=== PATIENT | female | born 1935 | race Caucasian/White ===

== ENCOUNTER 2023-10-22 17:00 | Emergency (ER) | payer MEDICARE ==
[2023-10-22 17:11] VITALS: RESP 18
--- NOTE | 2023-10-22 17:34 | ED ---
Fall HPI - General Chief Complaint: Fall Stated Complaint: fall Time Seen by Provider: 10/22/23 17:20 Source: patient, EMS, RN notes reviewed Mode of arrival: EMS - History of Present Illness Initial Comments: 88-year-old female presenting with head injury status post mechanical fall 1 hour ago. States she was walking down steps in the garage and tripped and fell, falling backwards and hitting the back of her head onto the cement. States she did not lose consciousness. Takes a baby aspirin daily however denies blood thinners. Denies any other injuries or symptoms currently. She reports there is a large bump on the back of her head that occurred immediately after the fall. Patient arrived by EMS. Review of Systems ROS Statement: Those systems with pertinent positive or pertinent negative responses have been documented in the HPI. ROS Other: All systems not noted in ROS Statement are negative. Past Medical History Past Medical History: Hyperlipidemia, Hypertension, Thyroid Disorder Additional Past Medical History / Comment(s): Hernia, Osteoprosis History of Any Multi-Drug Resistant Organisms: None Reported Past Surgical History: Appendectomy, Orthopedic Surgery Past Psychological History: No Psychological Hx Reported Smoking Status: Never smoker Past Alcohol Use History: None Reported Past Drug Use History: None Reported General Exam Limitations: no limitations General appearance: alert, in no apparent distress Head exam: Present: normocephalic, other (There is a 4 x 4 cm tender hematoma present on posterior aspect of scalp. C-collar present) Eye exam: Present: normal appearance, PERRL, EOMI. Absent: scleral icterus, conjunctival injection, periorbital swelling ENT exam: Present: normal exam, mucous membranes moist Neck exam: Present: normal inspection. Absent: tenderness, meningismus, lymphadenopathy Respiratory exam: Present: normal lung sounds bilaterally. Absent: respiratory distress, wheezes, rales, rhonchi, stridor Cardiovascular Exam: Present: regular rate, normal rhythm, normal heart sounds. Absent: systolic murmur, diastolic murmur, rubs, gallop, clicks GI/Abdominal exam: Present: soft, normal bowel sounds. Absent: distended, tenderness, guarding, rebound, rigid Extremities exam: Present: normal inspection, full ROM, normal capillary refill. Absent: tenderness, pedal edema, joint swelling, calf tenderness Neurological exam: Present: alert, oriented X3, CN II-XII intact Psychiatric exam: Present: normal affect, normal mood Skin exam: Present: warm, dry, intact, normal color. Absent: rash Course Vital Signs 10/22/23 17:02 Temperature 98.2 F Pulse Rate 84 Respiratory 18 Rate Blood Pressure 160/84 O2 Sat by Pulse 97 Oximetry Medical Decision Making - Medical Decision Making Was pt. sent in by a medical professional or institution (YANA Schulz, AUDIT TECH, urgent care, hospital, or assisted...) When possible be specific @ -No Did you speak to anyone other than the patient for history (EMS, parent, family, police, friend...)? What history was obtained from this source @ -Patient's daughter supplemented history Did you review nursing and triage notes (agree or disagree)? Why? @ -I reviewed and agree with nursing and triage notes Were old charts reviewed (outside hosp., previous admission, EMS record, old EKG, old radiological studies, urgent care reports/EKG's, assisted records)? Report findings @ -No old charts were reviewed Differential Diagnosis (chest pain, altered mental status, abdominal pain women, abdominal pain men, vaginal bleeding, weakness, fever, dyspnea, syncope, headache, dizziness, GI bleed, back pain, seizure, CVA, palpatations, mental health, musculoskeletal)? @ -Intracranial bleed, concussion, fracture, hematoma, laceration EKG interpreted by me (3pts min.). @ -None X-rays interpreted by me (1pt min.). @ -None done CT interpreted by me (1pt min.). @ -CT revealed no acute fracture or dislocation, no acute intracranial hemorrhage or midline shift. There is a moderate-sized acute left parietal scalp hematoma U/S interpreted by me (1pt. min.). @ -None done What testing was considered but not performed or refused? (CT, X-rays, U/S, labs)? Why? @ -None What meds were considered but not given or refused? Why? @ -None Did you discuss the management of the patient with other professionals (professionals i.e. YANA Schulz, AUDIT TECH, lab, RT, psych nurse, social service agency director, cutter apprentice hand, teacher, morals squad police officer, case hardener)? Give summary @ -No Was smoking cessation discussed for >3mins.? @ -No Was critical care preformed (if so, how long)? @ -No Were there social determinants of health that impacted care today? How? (Homelessness, low income, unemployed, alcoholism, drug addiction, transportation, low edu. Level, literacy, decrease access to med. care, half-way, rehab)? @ -No Was there de-escalation of care discussed even if they declined (Discuss DNR or withdrawal of care, Hospice)? DNR status @ -No What co-morbidities impacted this encounter? (DM, HTN, Smoking, COPD, CAD, Cancer, CVA, ARF, Chemo, Hep., AIDS, mental health diagnosis, sleep apnea, morbid obesity)? @ -None Was patient admitted / discharged? Hospital course, mention meds given and route, prescriptions, significant lab abnormalities, going to OR and other pertinent info. @ -Patient was discharged. Patient was seen and evaluated for head injury status post mechanical fall. Vital signs are stable, physical examination is remarkable for a hematoma present on posterior aspect of scalp. Neuro examination is unremarkable. CT revealed no acute fracture or dislocation, no acute intracranial hemorrhage or midline shift, there is a moderate-sized acute left parietal scalp hematoma. Discussed diagnosis of head injury with hematoma with patient. Supportive care discussed. Advised to follow-up with PCP in 1 to 3 days for reevaluation. Strict return/alarm symptoms discussed with patient in detail and she shows understanding and agrees to plan. Case discussed with my attending Dr. Conn. Patient discharged in stable condition. Undiagnosed new problem with uncertain prognosis? @ -No Drug Therapy requiring intensive monitoring for toxicity (Heparin, Nitro, Insulin, Cardizem)? @ -No Were any procedures done? @ -No Diagnosis/symptom? @ -Acute head injury, hematoma of scalp Acute, or Chronic, or Acute on Chronic? @ -Acute Uncomplicated (without systemic symptoms) or Complicated (systemic symptoms)? @ -Uncomplicated Side effects of treatment? @ -No Exacerbation, Progression, or Severe Exacerbation? @ -No Poses a threat to life or bodily function? How? (Chest pain, [place], [place], pneumonia, PE, COPD, DKA, ARF, appy, cholecystitis, CVA, Diverticulitis, Homicidal, Ramon icidal, threat to staff... and all critical care pts) @ -Low likelihood Disposition Clinical Impression: Head injury, acute Disposition: HOME SELF-CARE Condition: Stable Instructions (If sedation given, give patient instructions): Head Injury (ED) Additional Instructions: Please return to the Emergency Department if symptoms worsen or any other concerns. Is patient prescribed a controlled substance at d/c from ED?: No Referrals: None,Stated [Primary Care Provider] - 1-2 days Time of Disposition: 18:33
--- NOTE | 2023-10-22 18:06 | CT ---
EXAMINATION TYPE: CT brain [facility] DATE OF EXAM: 10/22/2023 COMPARISON: NONE HISTORY: pain after fall today CT DLP: 1306.7 mGycm. Automated Exposure Control for Dose Reduction was Utilized. TECHNIQUE: CT scan of the head and cervical spine are performed without contrast. FINDINGS: There is no acute intracranial hemorrhage or midline shift identified. Mild to moderate v entricular and sulcal prominence. [place] low attenuation throughout the deep and periventri cular white matter. Moderate sized acute left parietal scalp hematoma. The calvarium is intact. Bilat eral aphakia is present. The visualized sinuses are clear. Cervical spine is visualized in its entirety from C1 through upper thoracic levels and demonstrates m ultilevel spondylolisthesis without evidence of acute fracture or dislocation. Prevertebral soft tis brielle appears within normal limits. The C1-C2 articulation shows asymmetric left-sided narrowing on th e coronal images. Vertebral body heights are maintained. Moderate to severe disc space narrowing wit h mild to moderate spurring at C5-C6 and C6-C7 levels is present. Axial images show multilevel uncove rtebral facet degenerative changes bilaterally causing multilevel bilateral neural foraminal narrowin g. Lung apices are clear without pneumothorax. Somewhat small size thyroid gland is seen. IMPRESSION: 1. There is no acute fracture or dislocation evident in the cervical spine. 2. No acute intracranial hemorrhage or midline shift is seen.
[2023-10-22 18:50] VITALS: BP 158/79; PULSE 70; TEMP 98
== END 2023-10-22 18:50 | disposition home or self-care (01) ==
LOC: EC 17:00
DX: S00.03XA Contusion of scalp, initial encounter (principal); W01.0XXA Fall on same level from slipping, tripping and stumbling without subsequent striking against object, initial encounter; Y93.01 Activity, walking, marching and hiking; Y92.59 Other trade areas as the place of occurrence of the external cause
CPT/HCPCS: 70450; 72125; 99284